=== PATIENT | female | born 1965 | race Two or more races ===

== ENCOUNTER 2018-01-06 13:33 | Emergency (ER) | payer SELFPAY ==
[~2018-01-06] VITALS: Ht 160 cm; Wt 89.4 kg
[2018-01-06] MEDS ORDERED: ACETAMINOPHEN ES 500 MG TABLET ONE (15:48)
[2018-01-06] MEDS ORDERED: IBUPROFEN 600 MG TABLET PO ONE ×2 (15:48→16:00)
[2018-01-06] MEDS ORDERED: ACETAMINOPHEN ES 500 MG TABLET PO ONE (16:00)
[2018-01-06 16:57] VITALS: BP 138/87
== END 2018-01-06 16:58 | disposition home or self-care (01) ==
LOC: ER 13:35
DX: S39.012A Strain of muscle, fascia and tendon of lower back, initial encounter (principal); E03.9 Hypothyroidism, unspecified; I10 Essential (primary) hypertension; M54.2 Cervicalgia; M79.602 Pain in left arm; M79.605 Pain in left leg; V73.5XXA Driver of bus injured in collision with car, pick-up truck or van in traffic accident, initial encounter; Y93.89 Activity, other specified; Y92.410 Unspecified street and highway as the place of occurrence of the external cause; Y99.8 Other external cause status
CPT/HCPCS: 71045; 99283; A4606; Z7610